=== PATIENT | female | born 1955 | race Caucasian/White ===

== ENCOUNTER 2018-09-10 09:42 | Outpatient (CLI) | payer MEDICARE ==
--- NOTE | 2018-09-10 10:43 | BD ---
DEXA BONE DENSITY STUDY: Date: 09/10/18 HISTORY: 73-year-old postmenopausal female for screening. FINDINGS: Lumbar Spine: BMD (g/cm2) L1 0.748 T-Score: -2.2 L2 0.892 T-Score: -1.2 L3 0.971 T-Score: -1.0 L4 0.912 T-Score: -1.4 L1-L4 0.887 T-Score: -1.5 Femoral Neck: 0.569 T-Score: -2.5 Total Femur: 0.655 T-Score: -2.0 IMPRESSION: Osteoporosis. POS: [facility]
== END 2018-09-10 09:43 | disposition home or self-care (01) ==
LOC: BICMAMMO 09:42
PROVIDERS: ATTEND Physician Assistant
DX: Z13.820 Encounter for screening for osteoporosis (principal); M81.0 Age-related osteoporosis without current pathological fracture
CPT/HCPCS: 77080

== ENCOUNTER 2020-11-02 08:32 | Outpatient (CLI) | payer MEDICARE | END 2020-11-02 08:33 | disposition home or self-care (01) | LOC: BICMAMMO 08:32 | PROVIDERS: ATTEND Specialist | DX: Z12.31 Encounter for screening mammogram for malignant neoplasm of breast (principal); M81.0 Age-related osteoporosis without current pathological fracture; M85.88 Other specified disorders of bone density and structure, other site | CPT/HCPCS: 77063; 77067; 77080 ==